=== PATIENT | female | born 1950 | race Caucasian/White ===

== ENCOUNTER 2019-05-01 10:41 | Outpatient (CLI) | payer MEDICARE, SELFPAY ==
--- NOTE | ~2019-05-01 | DEXA_ITS ---
Bone Density Report Name: Katherine Chapman Age: 68 Sex: Female Ethnicity: White Date of : 1950 Indication: postmenopausal; height loss; prior fracture; hysterectomy; Referring Provider: Trever, Sona Block Study: Bone densitometry was performed. Exam Date: May 01, 2019 Accession number: [id number] Bone Density: Region BMD T-score Z-score Classification AP Spine (L1, L2) 1.079 0.9 2.7 Normal Femoral Neck (Left) 0.739 -1.0 0.6 Normal Total Hip (Left) 0.949 0.1 1.4 Normal Total Hip Bilateral Avg 0.954 0.1 1.4 Normal Femoral Neck (Right) 0.787 -0.6 1.0 Normal Total Hip (Right) 0.958 0.1 1.4 Normal World Health Organization criteria for BMD impression classify patients as: Normal (T-score at or above -1.0), Osteopenia (T-score between -1.0 and -2.5), or Osteoporosis (T-score at or below -2.5). 10-year Fracture Risk: FRAX not reported because: All T-scores for Spine Total, Hip Total, Femoral Neck at or above -1.0 Clinical Information Provided by Patient: Has had a low trauma fracture Has used the following medications: Vitamin D Has the following medical conditions: Hysterectomy Patient maximum height was 68 Menopause Age: 47 No regular weight bearing exercise Onset of menses at age 14 Number of children 2 Impression: The patient has normal bone mass. The patient has risk factors, including: previous fracture. Discussion: BONE DENSITY IS ABOVE THE MINIMUM DESIRABLE LEVEL AT ALL SKELETAL SITES TESTED. This patient?s bone mineral density is above the minimum desirable level (T-score -1.0 or better) at all sites measured. The patient should follow a healthful lifestyle (good nutrition with adequate calcium and vitamin D, and appropriate weight-bearing exercise). Follow-Up: Consider repeating this study in 5 years or sooner if there is some new clinical indication. Reported by: SHASHANK on 05/01/2019 11:08:00 AM. Reviewed, dictated and finalized at location AGrady MENDOZA
== END 2019-05-01 10:42 | disposition home or self-care (01) ==
PROVIDERS: PCP Family Medicine; Visit Provider Nurse Practitioner Family
DX: Z78.0 Asymptomatic menopausal state (principal)
CPT/HCPCS: 77080

== ENCOUNTER 2020-03-18 13:51 | Outpatient (CLI) | payer MEDICARE, SELFPAY ==
--- NOTE | ~2020-03-18 | MM_ITS ---
EXAMINATION: MM screening [facility] BI w roderick HISTORY: Screening TECHNIQUE: Craniocaudal and mediolateral oblique 3-D tomosynthesis images were obtained and synthetic 2-D images were generated. CAD analysis was submitted and interpreted. COMPARISON: Comparison to multiple prior studies sequentially, with oldest reviewed study dated 12/04. BREAST PARENCHYMAL COMPOSITION: Breast composed of scattered areas of fibroglandular density. FINDINGS: There is no evidence of suspicious mass, calcification, or architectural distortion to sugg est malignancy in either breast. There has been no suspicious interval change. IMPRESSION: 1. No mammographic evidence of malignancy. 2. Recommend routine screening mammography in one year. BI-RADS Category 1: Negative Reviewed, dictated and finalized at location A. CAL GOODS DRILL OPERATOR
--- NOTE | ~2020-03-18 | US_ITS ---
EXAMINATION: US arterial ankle brachial ind EXAM DATE: 03/18/2020 15:10 INDICATION: Symptoms/Signs Involving Circlaory/Respiratory Systems Leg Pain. TECHNIQUE: Segmental pressures and plethysmographic and Doppler waveforms of the brachial and lower e xtremity arteries were obtained. There is no prior study for comparison. FINDINGS: Right and left brachial artery pressures of 137 mm Hg and 136 mm Hg, respectively, are concordant (no rmal difference <= 30 mmHg). RIGHT LEG: The ankle-brachial index (ANUSHA) is 1.15 (normal >= 0.9-1). The great toe-brachial index (TBI) is 0.62 (normal >= 0.65). The lower extremity ratios, segmental pressure gradients as follows; Dorsalis pedis: 0.96 (137 mmHg). Posterior tibial: 1.15 (157 mmHg). (Normal gradients <= 20-30 mmHg between adjacent levels on the same leg or the same levels on the two legs). Arterial waveforms are biphasic. LEFT LEG: The ankle-brachial index (ANUSHA) is 1.02 (normal >= 0.9-1). The great toe-brachial index (TBI) is 0.45 (normal >= 0.65). The lower extremity ratios, segmental pressure gradients as follows; Dorsalis pedis: 0.93 (127 mmHg). Posterior tibial: 1.02 (140 mmHg). (Normal gradients <= 20-30 mmHg between adjacent levels on the same leg or the same levels on the two legs). Arterial waveforms are biphasic. IMPRESSION: 1. Right ankle-brachial index 1.15, normal. 2. Left ankle-brachial index 1.02, normal. Reviewed, dictated and finalized at location B. OYEE RELATIONS REPRESENTATIVE
== END 2020-03-18 13:52 | disposition home or self-care (01) ==
PROVIDERS: PCP Family Medicine; Visit Provider Nurse Practitioner Family
DX: Z12.31 Encounter for screening mammogram for malignant neoplasm of breast (principal); R09.89 Other specified symptoms and signs involving the circulatory and respiratory systems
CPT/HCPCS: 77063; 77067; 93922

== ENCOUNTER 2021-10-05 08:47 | Outpatient (CLI) | payer MEDICARE, SELFPAY ==
--- NOTE | ~2021-10-05 | MM_ITS ---
EXAMINATION: MM screening [facility] BI w roderick HISTORY: Screening TECHNIQUE: Craniocaudal and mediolateral oblique 3-D tomosynthesis images were obtained and synthetic 2-D images were generated. CAD analysis was submitted and interpreted. COMPARISON: Comparison to multiple prior studies sequentially, with oldest reviewed study dated 12/04. BREAST PARENCHYMAL COMPOSITION: There are scattered areas of fibroglandular density. FINDINGS: There is no evidence of suspicious mass, calcification, or architectural distortion to sugg est malignancy in either breast. There has been no suspicious interval change. IMPRESSION: 1. No mammographic evidence of malignancy. 2. Recommend routine screening mammography in one year. BI-RADS Category 1: Negative Reviewed, dictated and finalized at location A.
--- NOTE | ~2021-10-05 | DEXA_ITS ---
Bone Density Report Name: GE EDWARDS Age: 70 Sex: Female Ethnicity: White Date of : 1950 Indication: postmenopausal; screening for osteoporosis; height loss; prior fracture; hysterectomy; Referring Provider: INGRID, PRITESH Kelly Study: Bone densitometry was performed. Exam Date: October 05, 2021 Accession number: [id number] Bone Density: Region BMD T-score Z-score Classification AP Spine(L1-L4) 1.282 2.1 4.2 Normal Femoral Neck (Left) 0.778 -0.6 1.1 Normal Total Hip (Left) 0.976 0.3 1.7 Normal Femoral Neck (Right) 0.807 -0.4 1.4 Normal Total Hip (Right) 0.972 0.2 1.7 Normal Total Hip Mean 0.974 0.3 1.7 Normal World Health Organization criteria for BMD impression classify patients as: Normal (T-score at or above -1.0), Osteopenia (T-score between -1.0 and -2.5), or Osteoporosis (T-score at or below -2.5). 10-year Fracture Risk: FRAX not reported because: All T-scores for Spine Total, Hip Total, Femoral Neck at or above -1.0 Previous Exams: Region Exam Age BMD T-score BMD Change BMD Change Date g/cm2 vs Baseline vs Previous Total Hip(Left) 10/05/2021 70 0.976 0.3 0.027 (2.8%) 0.027 (2.8%) 05/01/2019 68 0.949 0.1 Total Hip(Right) 10/05/2021 70 0.972 0.2 0.014 (1.5%) 0.014 (1.5%) 05/01/2019 68 0.958 0.1 *Denotes significance at 95% confidence level, LSC for Total Hip = 0.027 g/cm2 Clinical Information Provided by Patient: Has had a low trauma fracture Has the following medical conditions: Hysterectomy Patient maximum height was 66.5 Menopause Age: 47 No regular weight bearing exercise Onset of menses at age 14 Number of children 2 Impression: The patient has normal bone mass. The patient has risk factors, including: previous fracture. No significant bone loss was observed. Discussion: BONE DENSITY IS ABOVE THE MINIMUM DESIRABLE LEVEL AT ALL SKELETAL SITES TESTED. This patient?s bone mineral density is above the minimum desirable level (T-score -1.0 or better) at all sites measured. The patient should follow a healthful lifestyle (good nutrition with adequate calcium and vitamin D, and appropriate weight-bearing exercise). Follow-Up: Consider repeating this study in 5 years or sooner if there is some new clinical indication. Reported by: SHASHANK on 10/05/2021 9:27:00 AM. Reviewed, dictated and finalized at location AGrady MENDOZA
== END 2021-10-05 08:48 | disposition home or self-care (01) ==
PROVIDERS: PCP Family Medicine; Visit Provider Nurse Practitioner Family
DX: Z12.31 Encounter for screening mammogram for malignant neoplasm of breast (principal); Z78.0 Asymptomatic menopausal state
CPT/HCPCS: 77063; 77067; 77080

== ENCOUNTER 2023-04-18 08:54 | Outpatient (CLI) | payer MEDICARE, SELFPAY ==
--- NOTE | ~2023-04-18 | MM_ITS ---
EXAMINATION: MM screening [facility] BI w roderick HISTORY: Screening mammogram, family history of breast cancer in her mother and sister. TECHNIQUE: Craniocaudal and mediolateral oblique 3-D tomosynthesis images were obtained and synthetic 2-D images were generated. CAD analysis was submitted and interpreted. COMPARISON: 10/05/2021, 03/18/2020, 12/12/2018, 11/28/2018 BREAST PARENCHYMAL COMPOSITION: There are scattered areas of fibroglandular density. FINDINGS: No suspicious mass, calcification, or architectural distortion are identified in either dorene ast to suggest malignancy. There has been no suspicious interval change. IMPRESSION: 1. No mammographic evidence of malignancy. 2. Recommend routine screening mammography in one year. BI-RADS Category 1: Negative Reviewed, dictated and finalized at location A. MUTUEL CLERK
== END 2023-04-18 08:55 | disposition home or self-care (01) ==
PROVIDERS: PCP Family Medicine; Visit Provider Family Medicine
DX: Z12.31 Encounter for screening mammogram for malignant neoplasm of breast (principal)
CPT/HCPCS: 77063; 77067

== ENCOUNTER 2024-06-18 14:44 | Outpatient (CLI) | payer MEDICARE, SELFPAY ==
--- NOTE | ~2024-06-18 | MM_ITS ---
EXAMINATION: MM screening cheryl BI w roderick HISTORY: Screening TECHNIQUE: Craniocaudal and mediolateral oblique 3-D tomosynthesis images were obtained and synthetic 2-D images were generated. CAD analysis was submitted and interpreted. COMPARISON: Comparison to multiple prior studies sequentially, with oldest reviewed study dated 05/29. BREAST PARENCHYMAL COMPOSITION: Not dense: There are scattered areas of fibroglandular density. FINDINGS: Bilateral breast asymmetries are stable. There is no evidence of suspicious mass, calcifica tion, or architectural distortion to suggest malignancy in either breast. There has been no suspiciou s interval change. IMPRESSION: 1. No mammographic evidence of malignancy. 2. Recommend routine screening mammography in one year. BI-RADS Category 2: Benign finding(s). Reviewed, dictated and finalized at location B.
--- OUTSIDE RECORDS SUMMARY | 2024-06-18 14:49 | XMS_ITS | Referral Summary ---
Author Organization [facility] [place] [address] Address [address] [place] [address] Care Team Providers Care Retrieval Specialist Name Role Phone Anderson Lofton MD Primary Care Provider [phone] Encounters Date Type Department Care Team Description 06/11/2024 8:10 AM CDT - 06/11/2024 11:59 PM CDT Hospital Encounter [facility] [address] [place] [id number] Thyroid nodule Discharge Disposition: Discharge to home or self care 06/11/2024 8:10 AM CDT - 06/11/2024 11:59 PM CDT Hospital Encounter [address] [address] Asymptomatic menopausal state Discharge Disposition: Discharge to home or self care 05/26/2024 Orders Only [facility] Primary Care at [address] [id number] Anderson Lofton MD 05/08/2024 Orders Only [facility] [address] [place] [address] Anderson Lofton MD Thyroid nodule (Primary Dx) 05/08/2024 8:30 AM GROUND SUPPORT AGENT Lab [facility] [address] [place] [address] Mixed hyperlipidemia 05/08/2024 8:00 AM GROUND SUPPORT AGENT Office Visit [facility] [address] [place] [address] Anderson Lofton MD Mixed hyperlipidemia (Primary Dx); Asymptomatic menopausal state; Thyroid nodule; History of colonic polyps; Annual physical exam; Adverse reaction to statin medication from Last 3 Months Allergies Active Allergy Reactions Criticality Noted Date Comments Morphine Other (See comments) Low 03/06/2019 Adverse reaction Penicillins Rash Medium 04/20/2014 Sulfa (Sulfonamide Antibiotics) Rash Medium 04/20/2014 Medications docusate sodium (Colace) 100 mg capsuleIndicati ons:constipatio n Take 1 capsule (100 mg total) by mouth 2 (two) times a day for 14 days 28 capsule 04/12/2023 Active cholecalciferol 400 unit capsule Active ezetimibe (ZETIA) 10 mg tablet TAKE 1 TABLET BY MOUTH DAILY 100 tablet 2 12/06/2023 Active Active Problems Problem Noted Date Diagnosed Date Annual physical exam 05/08/2024 Assessment & Plan (05/08/2024 8:21 AM GROUND SUPPORT AGENT): Focus of exam is preventative in nature. Reviewed immunizations, reivweed sun/skin cancer screening. Reivewed colon/breast cancer screening. Remains active and congratulate on active lifestyle. Asymptomatic menopausal state 05/08/2024 Assessment & Plan (05/08/2024 8:21 AM GROUND SUPPORT AGENT): Bone density screenign and will follow response. Adverse reaction to statin medication 05/08/2024 Assessment & Plan (05/08/2024 8:22 AM GROUND SUPPORT AGENT): TOlerating zetia and will montior rseponse. Epigastric hernia 03/12/2023 Assessment & Plan (04/18/2023 11:13 AM GROUND SUPPORT AGENT): Continue to avoid heavy lifting for 4 weeks. No submerging incisions for another week. Continue abdominal binder for comfort. Continue bowel regimen to avoid straining. Patient will call us back with any further questions or concerns. Vitamin D deficiency 03/06/2023 Assessment & Plan (03/06/2023 1:29 PM GROUND SUPPORT AGENT): Stable. Continue vitamin-D supplement. Will continue to monitor. Periumbilical hernia 03/06/2023 Assessment & Plan (03/12/2023 2:10 PM GROUND SUPPORT AGENT): Given the symptomatic nature of th presentation to the ED, we will set her up for repair. We have discussed the need for mesh implantation. We have corrections. All questions answered. Pre-admission testing will be sent in. Consent to be obtained Assessment & Plan (03/06/2023 1:29 PM GROUND SUPPORT AGENT): Currently asymptomatic. Keep appointment with general surgeon tomorrow. Red flags reviewed. Hospital discharge follow-up 03/06/2023 Assessment & Plan (03/06/2023 1:29 PM GROUND SUPPORT AGENT): I, Nae Hanson NP have personally reviewed pertinent inpatient and/or ED records, including discharge medications and Clindesk if applicable. This patient's discharge medication list has been reviewed and reconciled with her outpatient medication list and has also been reviewed with patient and/or caregiver. I have noted any changes. Class 1 obesity due to exces s calories without serious comorbidity with body mass index (BMI) of 30.0 to 30.9 in adult 03/06/2023 Thyroid nodule 02/04/2023 Assessment & Plan (05/08/2024 8:20 AM GROUND SUPPORT AGENT): Continue f/u with Dr. Patel and will follow response. DUe for repeat imaging. Assessment & Plan (02/04/2023 2:23 PM GROUND SUPPORT AGENT): Doxycycline twice daily for [address] Neck in 4 weeks Continue to monitor Thyroid nodule with yearly Ultrasounds, if growth over 4 cm will recommend Left completion thyroidectomy Continue good hydration and good oral hygiene Dental infection 02/04/2023 Assessment & Plan (02/04/2023 2:23 PM GROUND SUPPORT AGENT): Doxycycline twice daily for [address] Neck in 4 weeks Continue to monitor Thyroid nodule with yearly Ultrasounds, if growth over 4 cm will recommend Left completion thyroidectomy Continue good hydration and good oral hygiene History of colonic polyps 05/17/2022 Overview (05/17/2022): Added automatically from request for surgery [id number] Assessment & Plan (05/08/2024 8:20 AM GROUND SUPPORT AGENT): C-scope UTD. Assessment & Plan (03/06/2023 1:30 PM GROUND SUPPORT AGENT): Colonoscopy up-to-date. Consider MiraLax for constipation but await follow-up with surgeon tomorrow. Encounter for screening colonoscopy 05/17/2022 Overview (05/17/2022): Added automatically from request for surgery [id number] Herpes zoster without complication 02/15/2022 Assessment & Plan (02/15/2022 8:10 AM GROUND SUPPORT AGENT): Take antiviral three times daily for 7 days, started yesterday. Avoid high risk populations--elderly, very young, immunocompromised and . Discussed contagious nature of shingles until rash is scabbed over and dry. Take ibuprofen 800 mg 3x daily with food as needed for pain. Follow up if no improvement in 2 weeks or sooner if needed. Mixed hyperlipidemia 02/15/2022 Assessment & Plan (05/08/2024 8:20 AM GROUND SUPPORT AGENT): Contniues on zetia. Due for repeat labwork and will follow response. Assessment & Plan (02/15/2022 8:08 AM GROUND SUPPORT AGENT): Patient taking ezetimibe as prescribed. Will repeat labs prior to next office visit in 2 months. Reviewed diet and exercise recommendations. Class 1 obesity due to exces s calories with serious comorbidity and body mass index (BMI) of 31.0 to 31.9 in adult 02/15/2022 Assessment & Plan (02/15/2022 8:10 AM GROUND SUPPORT AGENT): Discussed healthy diet and importance of regular physical activity. Acute non-recurrent frontal sinusitis 07/22/2021 Assessment & Plan (07/22/2021 2:58 PM CDT): Complete zpack & medrol dose pack sent. Reviewed abx & medrol Ses & scheduling. Aware to complete full course. To continue mucinex/sinus otc medications. Discussed nasal saline rinses/neti pots. Push fluids. Reviewed red flags; what would warrant rtc. Cough 07/22/2021 Assessment & Plan (07/22/2021 2:59 PM CDT): Zashwini, shon perles & medrol dose pack sent. Will continue otc. To start saline nasal rinses again. Will switch to plain mucinex. Resolved Problems Problem Noted Date Diagnosed Date Resolved Date Pain in wrist 04/20/2014 02/22/2023 Immunizations Immunization Administration Dates Next Due Influenza, Quad, Adjuvantate d, Intramuscular 01/20/2021 Influenza, Quadrivalent, Maty l Culture-based MDCK, Antibiotic Free, Intramuscular 12/15/2018,12/15/2018 Influenza, Quadrivalent, Hig h Dose, Preservative Free, Intrr 12/19/2022,12/14/2019,12/14/2019 Influenza, Trivalent, Preser vative Free, Intramuscular 02/08/2017,02/08/2017 Influenza, Unspecified 01/01/2024,2021,12/02/2017,12/02 Pneumococcal Conjugate PCV 13 03/06/2019 Pneumococcal Polysaccharide PPV23 04/28/2021 Tdap 02/08/2017,02/08/2017 Social History Tobacco Use Types Packs/Day Years Used Date Smoking Tobacco: Former Cigarettes 0.3 11 0 03/04/1983 - 03/04/1994 Smokeless Tobacco: Never Alcohol Use Standard Drinks/Week Comments Never 0 (1 standard drink = 0.6 oz pur e alcohol) AUDIT-C Answer Date Recorded Frequency of Alcohol Consumption Not on file 04/04/2023 Q2: How many drinks containi ng alcohol do you have on a typical day when you are drinking? Patient does not drink Frequency of Binge Drinking Not on file 03/2023 PHQ-2 Answer Date Recorded PHQ-2 Total Score (If total score is 3 or more points, staff should administer the PHQ-9) 0 05/08/2024 Personal Safety Answer Date Recorded Have you ever been in or are you currently in a harmful physical or emotional relationship or is someone making you feel afraid or unsafe? Denies 04/12/2023 Comments No Sex and Gender Information Value Date Recorded Sex Assigned at Not on file Legal Sex Female 11:19 AM GROUND SUPPORT AGENT Gender Identity Not on file Sexual Orientation Not on file Last Filed Vital Signs Vital Sign Reading Time Taken Comments Blood Pressure 124/78 05/08/2024 7:55 AM GROUND SUPPORT AGENT Pulse 76 05/08/2024 7:55 AM GROUND SUPPORT AGENT Temperature 36.8 C (98.3 F) 05/08/2024 7:55 AM GROUND SUPPORT AGENT Respiratory Rate 18 05/08/2024 7:55 AM GROUND SUPPORT AGENT Oxygen Saturation 99% 05/08/2024 7:55 AM GROUND SUPPORT AGENT room air Inhaled Oxygen Concentration - - Weight 84.4 kg (186 lb) 05/08/2024 7:55 AM GROUND SUPPORT AGENT Height 167.6 cm (5' 6 ) 05/08/2024 7:55 AM GROUND SUPPORT AGENT Body Mass Index 30.02 05/08/2024 7:55 AM GROUND SUPPORT AGENT Plan of Treatment Not on file Medical Devices Implanted Type Area Drying Supervisor Device Identifier Shelf Expiration Date Model / Serial / Lot [employer]/C R Bard Ventralight St Sepra 4.5in Uncoated Monofilament Lightweight [id number] - [id number] Implanted:Qty: 1 on 04/12/2023 by Ward Burnham MD at [facility] N/A: Abdomen [employer] 09/28/2024 [id number] / / [id number] Procedures Procedure Name Priority Date/Time Associated Diagnosis Comments DEXA AXIAL SKELETON BONE DENSITY 1 OR MORE SITES Schedule Routine, Read Routine (OP Routine) 06/11/2024 8:24 AM CDT Asymptomatic menopausal state EGFR Routine 05/08/2024 8:24 AM GROUND SUPPORT AGENT Mixed hyperlipidemia DIFFERENTIAL AUTO Routine 05/08/2024 8:2 4 AM GROUND SUPPORT AGENT Mixed hyperlipidemia CBC WITH AUTO DIFFERENTIAL Routine 05/08/2024 8:24 AM GROUND SUPPORT AGENT Mixed hyperlipidemia COMPREHENSIVE METABOLIC PANEL Routine 05/08/2024 8:24 AM GROUND SUPPORT AGENT Mixed hyperlipidemia LIPID PANEL Routine 05/08/2024 8:24 AM GROUND SUPPORT AGENT Mixed hyperlipidemia SCREENING MAMMOGRAM BILATERAL W DELIA Schedule Routine, Read Routine (OP Routine) 04/18/2023 11:54 AM GROUND SUPPORT AGENT Encounter for screening mammogram for malignant neoplasm of breast COLONOSCOPY 06/15/2022 9:26 AM CDT HEPATITIS C ANTIBODY Routine 07/10/2021 7:15 AM CDT Encounter for hepatitis C screening test for low risk patient from Last 3 Months or Most Recently Relevant to Health Maintenance Results * Dexa Axial Skeleton Bone Density 1 or 2 Site (06/11/2024 8:24 AM CDT) Anatomical Region Laterality Modality Body N/A Other 06/11/2024 4:37 PM CDT Narrative 06/11/2024 4:38 PM CDT EXAM DESCRIPTION: DEXA AXIAL SKELETON BONE DENSITY 1 OR MORE SITES REASON FOR STUDY: 73 y/o year old F with given history of: Postmenopausal status. Patient takes vitamin-D. Drying Supervisor/Model: [employer] Discovery SL (S/N [id number]) Facility LSC value of 0.022 for the AP spine, 0.027 for the femur, and 0.023 for the forearm. CLINICAL INFORMATION: Current height: 65 inches Maximum height: 66 inches Weight: 186 pounds Risk factors: None COMPARISON: None available FINDINGS: AP LUMBAR SPINE L1-L4: Total BMD is 1.203 g/cm2 T-score is 1.4 LEFT HIP: Total BMD is 0.904 g/cm2 T-score is -0.3 Femoral neck BMD is 0.723 g/cm2 T-score is -1.1 FRAX: 10 year risk for a major osteoporotic fracture is 9 %, 10 year risk for a hip fracture is 1.1 % Per National Osteoporosis Foundation guidelines, this patient does not meet the criteria for pharmacological treatment of patients with FRAX 10 year major osteoporotic fracture risk scores of = or greater than 20% or a 10 year probability of a hip fracture = or greater than 3%, to reduce fracture risk. Additional factors such as frequent falls are not represented in FRAX and warrant individual clinical judgment. IMPRESSION: Low bone mass REFERENCE: Bone mineral density: T-Score: Normal (T-score above or = -1.0) Low bone mass (T-score between -1.0 and -2.5) replaces the previously used term osteopenia Osteoporosis (T-score = or below -2.5) Z-Score: Within the expected range for age (Z-score above -2.0) Below the expected range for age (Z-score is -2.0 or below) Please see below follow up recommendations. Medical evaluation for secondary causes of low bone mineral density may be appropriate. FRAX is a World Health Organization validated fracture risk assessment tool that calculates a person's 10 year probability of a major osteoporosis related fracture and hip fracture. According to the National Osteoporosis Foundation guidelines, postmenopausal women and men age 50 or older with low bone mass and a 10 year probability of a major osteoporosis related fracture = or greater than 20% or a 10 year probability of a hip fracture = or greater than 3% should be considered for pharmacological treatment for the prevention of osteoporosis. For further information, including treatment recommendations, please refer to the 2019 ISCD Official Positions (http://www.iscd.org) and the NOF's Clinician's Guide to Prevention and Treatment of Osteoporosis (http://www.nof.org/professionals/clinical-guidelines) THIS IS AN ELECTRONICALLY VERIFIED FINAL REPORT 06/11/2024 4:38 PM - Electronically signed by Betina Quiñonez M.D. TW: TW Report ID: [id number] Reading Location: [place] [address] Procedure Note Betina Quiñonez MD - 06/11/2024 EXAM DESCRIPTION: DEXA AXIAL SKELETON BONE DENSITY 1 OR MORE SITES REASON FOR STUDY: 73 y/o year old F with given history of:Postmenopausal status. Patient takes vitamin-D. Drying Supervisor/Model: [employer] Discovery SL (S/N [id number]) Facility LSC value of 0.022 for the AP spine, 0.027 for the femur, and0.023 for the forearm. CLINICAL INFORMATION: Current height: 65 inches Maximum height: 66 inches Weight: 186 pounds Risk factors: None COMPARISON: None available FINDINGS: AP LUMBAR SPINE L1-L4: Total BMD is 1.203 g/cm2 T-score is 1.4 LEFT HIP: Total BMD is 0.904 g/cm2 T-score is -0.3 Femoral neck BMD is 0.723 g/cm2 T-score is -1.1 FRAX: 10 year risk for a major osteoporotic fracture is 9 %, 10 year risk for ahip fracture is 1.1 % Per National Osteoporosis Foundation guidelines, this patient does notmeet the criteria for pharmacological treatment of patients with FRAX 10 yearmajor osteoporotic fracture risk scores of = or greater than 20% or a 10 year probability of a hip fracture = or greater than 3%, to reduce fracturerisk. Additional factors such as frequent falls are not represented in FRAX and warrant individual clinical judgment. IMPRESSION: Low bone mass REFERENCE: Bone mineral density: T-Score: Normal (T-score above or = -1.0) Low bone mass (T-score between -1.0 and -2.5) replaces thepreviously used term osteopenia Osteoporosis (T-score = or below -2.5) Z-Score: Within the expected range for age (Z-score above -2.0) Below the expected range for age (Z-score is -2.0 or below) Please see below follow up recommendations. Medical evaluation forsecondary causes of low bone mineral density may be appropriate. FRAX is a World Health Organization validated fracture risk assessmenttool that calculates a person's 10 year probability of a major osteoporosisrelated fracture and hip fracture. According to the National OsteoporosisFoundation guidelines, postmenopausal women and men age 50 or older with low bonemass and a 10 year probability of a major osteoporosis related fracture = or greater than 20% or a 10 year probability of a hip fracture = or greaterthan 3% should be considered for pharmacological treatment for the preventionof osteoporosis. For further information, including treatment recommendations, please referto the 2019 ISCD Official Positions (http://www.iscd.org) and the NOF's Clinician's Guide to Prevention and Treatment of Osteoporosis (http://www.nof.org/professionals/clinical-guidelines) THIS IS AN ELECTRONICALLY VERIFIED FINAL REPORT 06/11/2024 4:38 PM - Electronically signed by Betina Quiñonez M.D. TW: BIBI Report ID: [id number] Reading Location: [id number] Anderson Lofton MD IMG DXA PROCEDURES Final Result * eGFR (05/08/2024 8:24 AM GROUND SUPPORT AGENT) eGFR 72 >=60 mL/min/1. 73 m2 Comment: Interpretive Data Reference Interval Normal >/= 90 mL/min/1.73m2 Mildly decreased* 60 - 89 mL/min/1.73m2 Mildly to moderately decreased 45 - 59 mL/min/1.73m2 Moderately to severely decreased 30 - 44 mL/min/1.73m2 Severely decreased 15 - 29 mL/min/1.73m2 Kidney Failure < 15 mL/min/1.73m2 *Relative to young adult level Estimated glomerular filtration rate is determined by the 2020 CKD-EPI equation recommended by the National Kidney Foundation (A Unifying Approach to GFR Estimation: Recommendations of the NKF-ASK Task Force on Reassessing the Inclusion of Race in Diagnosing Kidney Disease, JASN 2020). The CKD-EPI equation should not be used for patients with unstable renal function and has not been validated in children and those over 70. Current interpretive data was last reviewed 2021. Testing performed by: [address] [address] Blood 05/08/2024 8:24 AM GROUND SUPPORT AGENT 05/08/2024 1:17 PM GROUND SUPPORT AGENT Anderson Lofton MD LAB BLOOD ORDERABLES Raquel l Result ANNEL SANTOS (SPENCER) 1 [facility] Department [place] [address] * Differential, auto (05/08/2024 8:24 AM GROUND SUPPORT AGENT) Neutrophil abs 3.2 1.5 - 6.5 K/cumm Comment:Testing performed by : [facility], [address] [place] [address]., [address] Imm gran abs 0.0 0.0 - 0.1 K/cumm [facility] ([facility]) Comment:Testing performed by : [facility], [address] [place] [address]., [address] Lymphocyte abs 1.8 0.8 - 3.3 K/cumm [facility] ([place]) Comment:Testing performed by : [facility], [address] [place] [address]., [address] Monocyte abs 0.4 0.2 - 0.8 K/cumm [facility] ([place]) Comment:Testing performed by : [facility], [address] [place] [address]., [address] Eosinophil abs 0.1 0.0 - 0.5 K/cumm [facility] ([place]) Comment:Testing performed by : [facility], [address] [place] [address]., [address] Basophil abs 0.1 0.0 - 0.1 K/cumm [facility] ([place]) Comment:Testing performed by : [facility], [address] [place] [address]., [address] Neutrophil pct 56.7 % [facility] ([place]) Comment: Interpretive Data Percent cell count reference ranges are not reported, since discordance with absolute values may lead to misinterpretation of CBC data. Current Interpretive Data was last revised on 2017. Testing performed by: [address] [address] Imm gran pct 0.4 % [facility] ([place]) Comment: Interpretive Data Percent cell count reference ranges are not reported, since discordance with absolute values may lead to misinterpretation of CBC data. Current Interpretive Data was last revised on 2017. Testing performed by: [address] [address] Lymphocyte pct 32.9 % [facility] ([place]) Comment: Interpretive Data Percent cell count reference ranges are not reported, since discordance with absolute values may lead to misinterpretation of CBC data. Current Interpretive Data was last revised on 2017. Testing performed by: [facility], [address] [place] [address]., [address] Monocyte pct 7.7 % [facility] ([place]) Comment: Interpretive Data Percent cell count reference ranges are not reported, since discordance with absolute values may lead to misinterpretation of CBC data. Current Interpretive Data was last revised on 2017. Testing performed by: [facility], [address] [place] [address]., [address] Eosinophil pct 1.4 % [facility] ([facility]) Comment: Interpretive Data Percent cell count reference ranges are not reported, since discordance with absolute values may lead to misinterpretation of CBC data. Current Interpretive Data was last revised on 2017. Testing performed by: [facility], [address] [place] [address]., [address] Basophil pct 0.9 % [facility] ([place]) Comment: Interpretive Data Percent cell count reference ranges are not reported, since discordance with absolute values may lead to misinterpretation of CBC data. Current Interpretive Data was last revised on 2017. Testing performed by: [address] [address] Blood 05/08/2024 8:24 AM GROUND SUPPORT AGENT 05/08/2024 1:05 PM GROUND SUPPORT AGENT Anderson Lofton MD LAB BLOOD ORDERABLES Raquel l Result ANNEL SANTOS (SPENCER) 1 [facility] Department [place] [address] * (ABNORMAL) CBC with auto differential (05/08/2024 8:24 AM GROUND SUPPORT AGENT) WBC 5.6 3.8 - 9.9 K/cumm Comment:Testing performed by : [facility], [address] [place] [address]., [address] Hgb 13.3 11.9 - 15.5 g/dL [facility] ([place]) Comment:Testing performed by : [address] [address] Hct 43.3 35.6 - 45.5 % [facility] ([place]) Comment:Testing performed by : [facility], [address] [place] [address]., [address] Plt 385 150 - 400 K/cumm [facility] ([place]) Comment:Testing performed by : [address], [address] MPV 10.2 9.1 - 12.3 fL [facility] ([place]) Comment:Testing performed by : [facility], [address] [place] [address], [address] RBC 4.59 3.90 - 5.20 M/cumm [facility] ([place]) Comment:Testing performed by : [facility], [address] [place] [address], [address] MCV 94.3 81.3 - 96.4 fL [facility] ([place]) Comment:Testing performed by : [facility], [address] [place] [address], [address] MCH 29.0 27.1 - 33.3 pg [facility] ([place]) Comment:Testing performed by : [address], [address] MCHC 30.7(L) 32.3 - 35.7 g/dL [facility] ([place]) Comment:Testing performed by : [address], [address] RDW CV 14.1 11.1 - 14.9 % [facility] ([place]) Comment:Testing performed by : [address], [address] RDW SD 49.5(H) 35.7 - 48.1 fL [facility] ([place]) Comment:Testing performed by : [address], [address] NRBC abs 0.00 0.00 - 0.01 K/cumm [facility] ([place]) Comment:Testing performed by : [address], [address] Blood 05/08/2024 8:24 AM GROUND SUPPORT AGENT 05/08/2024 1:05 PM GROUND SUPPORT AGENT us Anderson Lofton MD LAB BLOOD ORDERABLES Raquel woodruff Result ANNEL SANTOS (RANDY) 1 [facility] Department [place] [address] * (ABNORMAL) Lipid panel (05/08/2024 8:24 AM GROUND SUPPORT AGENT) Cholesterol 227(H) 30 - 199 mg/dL Comment: Interpretive Data Ages < or = 19 years Acceptable: <170 mg/dL Borderline high: 170-199 mg/dL High: >or= 200 mg/dL Ages > or = 20 years Desirable: <200 mg/dL Borderline high: 200-239 mg/dL High: >or= 240 mg/dL Literature References: 1. Expert Panel on Integrated Guidelines for Cardiovascular Health and Risk Reduction in Children and Adolescents. Pediatrics 2011;128:S213 2. NCEP Expert Panel. Circulation 2004;110:227 Current Interpretive Data was last revised on 2017. Testing performed by: [facility], [address] [place] [address]., [address] Triglycerides 103 <=149 mg/dL ANNEL SANTOS (RANDY) Comment: Interpretive Data Ages < or = 9 years Acceptable: <75 mg/dL Borderline high: 75-99 mg/dL High: >or= 100 mg/dL Ages 10 to 20 years Acceptable: <90 mg/dL Borderline high: 90-129 mg/dL High: >or= 130 mg/dL Ages > or = 20 years Desirable: <150 mg/dL Borderline high: 150-199 mg/dL High: 200-499 mg/dL Very high: >or= 499 mg/dL Literature References: 1. Expert Panel on Integrated Guidelines for Cardiovascular Health and Risk Reduction in Children and Adolescents. Pediatrics 2011;128:S213 2. NCEP Expert Panel. Circulation 2004;110:227 Current Interpretive Data was last revised on 2017. Testing performed by: [facility], [address] [place] [address]., [address] HDL 62 >=40 mg/dL ANNEL SANTOS ([place]) Comment: Interpretive Data Ages < or = 19 years Acceptable: >45 mg/dL Borderline low: 40-45 mg/dL Low: <40 mg/dL Ages > or = 20 years Desirable: >or= 60 mg/dL Low: <40 mg/dL Literature References: 1. Expert Panel on Integrated Guidelines for Cardiovascular Health and Risk Reduction in Children and Adolescents. Pediatrics 2011;128:S213 2. NCEP Expert Panel. Circulation 2004;110:227 Current Interpretive Data was last revised on 2017. Testing performed by: [facility], [address] [place] [address]., [id number] LDL, calculated 147(H) <=129 mg/dL ANNEL SANTOS ([place]) Comment: Interpretive Data Ages < or = 19 years Acceptable: <110 mg/dL Borderline high: 110-129 mg/dL High: >or= 130 mg/dL Ages > or = 20 years Optimal: <100 mg/dL Near optimal: 100-129 mg/dL Borderline high: 130-159 mg/dL High: >160 mg/dL Calculated using the Raffi LDL-C estimating equation. This equation was implemented on 2023. Prior to this date LDL-C was estimated using the Friedewald equation. Literature References: 1. Expert Panel on Integrated Guidelines for Cardiovascular Health and Risk Reduction in Children and Adolescents. Pediatrics 2011;128:S213 2. NCEP Expert Panel. Circulation 2004;110:227 3. Raffi Pike et al. BARBARA Cardiol. 2019July 02;5(5):540-548. doi: [email or web address] Current Interpretive Data was last revised on 2023. Testing performed by: [address] [address] Non-HDL Cholesterol 165 mg/dL ANNEL SANTOS ([place]) Comment: Interpretive Data Ages < or = 19 years Acceptable: <120 mg/dL Borderline high: 120-144 mg/dL High: >145 mg/dL Ages > or = 20 years When triglycerides are >200 mg/dL, Non-HDL cholesterol is a secondary target of therapy with treatment goals that are 30 mg/dL greater than the LDL cholesterol target. Literature References: 1. Expert Panel on Integrated Guidelines for Cardiovascular Health and Risk Reduction in Children and Adolescents. Pediatrics 2011;128:S213 2. NCEP Expert Panel. Circulation 2004;110:227 Current Interpretive Data was last revised on 2017. Testing performed by: [facility], [address] [place] [address]., [id number] Chol/HDL ratio 4 KEEGAN SANTOS ([place]) Comment:Testing performed by : [facility], [address] [place] [address]., [id number] Blood 05/08/2024 8:24 AM GROUND SUPPORT AGENT 05/08/2024 1:05 PM GROUND SUPPORT AGENT us Anderson Lofton MD LAB BLOOD ORDERABLES Raquel woodruff Result ANNEL [facility] 1 [facility] Department [place] [address] * Comprehensive metabolic panel (05/08/2024 8:24 AM GROUND SUPPORT AGENT) Sodium 141 135 - 145 mmol/L Comment:Testing performed by : [facility], [address] [place] [address]., [address] Potassium, pl 4.2 3.3 - 4.9 mmol/L [facility] ([place]) Comment:Testing performed by : [facility], [address] [place] [address]., [address] Chloride 103 97 - 110 mmol/L [facility] ([place]) Comment:Testing performed by : [facility], [address] [place] [address]., [address] CO2 26 22 - 32 mmol/L [facility] ([place]) Comment:Testing performed by : [facility], [address] [place] [address]., [address] Anion gap 12 2 - 15 mmol/L [facility] ([place]) Comment:Testing performed by : [facility], [address] [place] [address]., [address] BUN 17 6 - 25 mg/dL [facility] ([place]) Comment:Testing performed by : [facility], [address] [place] [address]., [address] Creatinine 0.86 0.60 - 1.10 mg/dL [facility] ([place]) Comment:Testing performed by : [address] [address] Glucose 104 70 - 199 mg/dL [facility] ([place] Comment: Interpretive Data Fasting glucose >/= 126 mg/dl is diagnostic for diabetes. Fasting is defined as no caloric intake for at least 8 hours. Fasting glucose between 100 mg/dl to 125 mg/dl is diagnostic of prediabetes. In a patient with classic symptoms of hyperglycemia or hyperglycemic crisis, a random glucose >/= 200 mg/dl is diagnostic for diabetes. In the absence of unequivocal hyperglycemia, results should be confirmed by repeat testing. The classification and Diagnosis of Diabetes Diabetes Care 202; 46: S19-S40. Current interpretive data was last revised 2022. Testing performed by: [facility], [address] [place] [address], [id number] Calcium 9.3 8.5 - 10.3 mg/dL [facility] ([place]) Comment:Testing performed by : [facility], [address] [place] [address], [address] Bilirubin, total 0.3 0.1 - 1.2 mg/dL [facility] ([place]) Comment:Testing performed by : [facility], [address] [place] [address], [address] Protein, pl 7.3 6.5 - 8.5 g/dL [facility] ([place]) Comment:Testing performed by : [facility], [address] [place] [address], [address] Albumin 4.4 3.5 - 5.0 g/dL [facility] ([place]) Comment:Testing performed by : [address], [address] Alk phos 90 40 - 130 Units/L [facility] ([place]) Comment:Testing performed by : [facility], [address] [place] [address], [address] ALT 32 7 - 45 Units/L [facility] ([place]) Comment:Testing performed by : [facility], [address] [place] [address], [id number] AST 33 10 - 45 Units/L [facility] ([place]) Comment:Testing performed by : [address], [id number] Blood 05/08/2024 8:24 AM GROUND SUPPORT AGENT 05/08/2024 1:05 PM GROUND SUPPORT AGENT Anderson Lofton MD LAB BLOOD ORDERABLES Raquel l Result [facility] ([place]) 1 [facility] Department [place] [address] * SCREENING MAMMOGRAM BILATERAL W DELIA (04/18/2023 11:54 AM GROUND SUPPORT AGENT) Anatomical Region Laterality Modality Breast Bilateral Mammography 04/18/2023 11:5 4 AM GROUND SUPPORT AGENT Anderson Lofton MD G MAMMO PROCEDURES Raquel l Result * COLONOSCOPY (06/15/2022 9:26 AM CDT) Anatomical Region Laterality Modality Other Narrative Procedure Note Devyn Barrios MD - 06/15/2022 9:26 AM CDT [facility] Patient Name: Katherine Chapman Procedure Date: 06/15/2022 9:26 AM Date of : 1950 Admit Type: Outpatient Age: 71 Gender: Female Attending MD: Devyn Barrios M.D. Room: [facility] ENDOSCOPY ROOM 2 Note Status: Finalized Patient Profile: Refer to note in patient chart for documentation of history and physical. Procedure: Colonoscopy Indications: Last colonoscopy: July 2010, Change in stoolcaliber Referring MD: Anderson Lofton M.D. Providers: Devyn Barrios M.D. Impression: - Hemorrhoids found on perianal exam. - Diverticulosis in the sigmoid colon, in the descending colon and in the transverse colon. - The examination was otherwise normal. - No specimens collected. Recommendation: - Discharge patient to home. - Resume previous diet. - Continue present medications. - Repeat colonoscopy in 10 years for screening purposes. - Return to primary care physician as previously scheduled. Medicines: Propofol per Anesthesia Complications: No immediate complications. Estimated Blood Loss: Estimated blood loss: none. Procedure: Pre-Anesthesia Assessment: - This assessment was completed [Time ofAssessment] prior to the administration of sedation. The benefits, risks and alternatives of theprocedure and sedation were discussed and informed consentwas obtained. All questions were answered. Please referto the signed informed consent document in the medical record. The bowel preparation used was Miralax via split dose instruction. The bowel preparation usedwas bisacodyl tablets via split dose instruction. The scope was passed under direct vision. TheColonoscope [id number] was introduced through the anus and advanced to the the cecum, identified by appendiceal orifice and ileocecal valve. The colonoscopy was performed without difficulty. The patient tolerated the procedure well. The qualityof the bowel preparation was excellent. The ileocecal valve, appendiceal orifice, and rectum were photographed. Findings: Hemorrhoids were found on perianal exam. Multiple small and large-mouthed diverticula were found in thesigmoid colon, descending colon and transverse colon. The exam was otherwise without abnormality. Electronically signed by Devyn Barrios M.D. Devyn Barrios M.D. 06/15/2022 10:30:20 AM Number of Addenda: 0 Note Initiated On: 06/15/2022 9:26 AM Procedure Code(s): --- Professional --- 24002, Colonoscopy, flexible; diagnostic, including collection of specimen(s) by brushing or washing, when performed (separateprocedure) --- Technical --- 68992, Colonoscopy, flexible; diagnostic, including collection of specimen(s) by brushing or washing, when performed (separateprocedure) Diagnosis Code(s): --- Professional --- K57.30, Diverticulosis of large intestine without perforation orabscess without bleeding R19.5, Other fecal abnormalities K64.9, Unspecified hemorrhoids --- Technical --- K57.30, Diverticulosis of large intestine without perforation orabscess without bleeding R19.5, Other fecal abnormalities K64.9, Unspecified hemorrhoids CPT copyright 2020 [employer]. All rights reserved. The codes documented in this report are preliminary and upon manager of enterprise reviewmay be revised to meet current compliance requirements. Recognized by the [employer] for promoting quality in endoscopy Devyn Barrios MD ENDOSCOPY PROCEDURES Final Re sult * Hepatitis C antibody (07/10/2021 7:15 AM CDT) Hep C Ab NON-REACTI VE NON-REACT DASHAWN [facility] SIGNAL TO CUT-OFF 0.01 <1.00 [facility] Comment: HCV antibody was non-reactive. There is no laboratory evidence of HCV infection. In most cases, no further action is required. However, if recent HCV exposure is suspected, a test for HCV RNA (test code 59893) is suggested. For additional information please refer to http://education.[employer]/faq/EWO63q0 (This link is being provided for informational/ educational purposes only.) Blood specimen (specimen) 07/10/2021 7:15 AM CDT 07/10/2021 7:16 AM CDT Narrative [facility] - 07/11/2021 10:28 AM CDT FASTING:YES FASTING: YES Nae Hanson NP LAB MICROBIOLOGY - GENERAL ORDERABLES Final Result [facility] [id number] [address] [facility] [place] [phone] from Last 3 Months or Most Recently Relevant to Health Maintenance Insurance [facility] MEDICARE ADVANTAGE [place] [id number] Advance Directives For more information, please contact: [phone] * Full Code (Latest Code Status on File) Date Activated Date Inactivated Comments 06/15/2022 9:21 AM 06/15/2022 3:22 PM * Full Code Date Activated Date Inactivated Comments 06/15/2022 9:21 AM 06/15/2022 9:21 AM Care Teams Retrieval Specialist Relationship Specialty Start Date End Date Anderson Lofton MD [address] [place] [address] PCP - General Family Medicine 03/06/19
--- OUTSIDE RECORDS SUMMARY | 2024-06-18 14:50 | XMS_ITS | Clinical Summary ---
Author Organization [facility] [address] Address [address] [place] [address] Care Team Providers Care Feed Management Advisor Name Role Phone Anderson Lofton MD Primary Care Provider [phone] Allergies Active Allergy Reactions Criticality Noted Date [...] 05/08/2024 Assessment & Plan (05/08/2024 8:21 AM NURSE PRACTITIONER PHYSICIAN ASSISTANT): Focus of exam is preventative in nature. Reviewed immunizations, reivweed sun/skin cancer screening. Reivewed colon/breast cancer screening. Remains active and congratulate on active lifestyle. Asymptomatic menopausal state 05/08/2024 Assessment & Plan (05/08/2024 8:21 AM NURSE PRACTITIONER PHYSICIAN ASSISTANT): Bone density screenign and will follow response. Adverse reaction to statin medication 05/08/2024 Assessment & Plan (05/08/2024 8:22 AM NURSE PRACTITIONER PHYSICIAN ASSISTANT): TOlerating zetia and will montior rseponse. Epigastric hernia 03/12/2023 Assessment & Plan (04/18/2023 11:13 AM NURSE PRACTITIONER PHYSICIAN ASSISTANT): Continue to avoid heavy lifting for 4 weeks. No submerging incisions for another week. Continue abdominal binder for comfort. Continue bowel regimen to avoid straining. Patient will call us back with any further questions or concerns. Vitamin D deficiency 03/06/2023 Assessment & Plan (03/06/2023 1:29 PM NURSE PRACTITIONER PHYSICIAN ASSISTANT): Stable. Continue vitamin-D supplement. Will continue to monitor. Periumbilical hernia 03/06/2023 Assessment & Plan (03/12/2023 2:10 PM NURSE PRACTITIONER PHYSICIAN ASSISTANT): Given the symptomatic nature of th presentation to the ED, we will set her up for repair. We have discussed the need for mesh implantation. We have corrections. All questions answered. Pre-admission testing will be sent in. Consent to be obtained Assessment & Plan (03/06/2023 1:29 PM NURSE PRACTITIONER PHYSICIAN ASSISTANT): Currently asymptomatic. Keep appointment with general surgeon tomorrow. Red flags reviewed. Hospital discharge follow-up 03/06/2023 Assessment & Plan (03/06/2023 1:29 PM NURSE PRACTITIONER PHYSICIAN ASSISTANT): Nae Kwon NP have personally reviewed pertinent inpatient and/or [...] 02/04/2023 Assessment & Plan (05/08/2024 8:20 AM NURSE PRACTITIONER PHYSICIAN ASSISTANT): Continue f/u with Dr. Patel and will follow response. DUe for repeat imaging. Assessment & Plan (02/04/2023 2:23 PM NURSE PRACTITIONER PHYSICIAN ASSISTANT): Doxycycline twice daily for [address] Neck in 4 weeks Continue to monitor Thyroid nodule with yearly Ultrasounds, if growth over 4 cm will recommend Left completion thyroidectomy Continue good hydration and good oral hygiene Dental infection 02/04/2023 Assessment & Plan (02/04/2023 2:23 PM NURSE PRACTITIONER PHYSICIAN ASSISTANT): Doxycycline twice daily for [address] Neck in 4 weeks Continue to monitor Thyroid nodule with yearly Ultrasounds, if growth over 4 cm will recommend Left completion thyroidectomy Continue good hydration and good oral hygiene History of colonic polyps 05/17/2022 Overview (05/17/2022): Added automatically from request for surgery [id number] Assessment & Plan (05/08/2024 8:20 AM NURSE PRACTITIONER PHYSICIAN ASSISTANT): C-scope UTD. Assessment & Plan (03/06/2023 1:30 PM NURSE PRACTITIONER PHYSICIAN ASSISTANT): Colonoscopy up-to-date. Consider MiraLax for constipation but await follow-up with surgeon tomorrow. Encounter for screening colonoscopy 05/17/2022 Overview (05/17/2022): Added automatically from request for surgery [id number] Herpes zoster without complication 02/15/2022 Assessment & Plan (02/15/2022 8:10 AM NURSE PRACTITIONER PHYSICIAN ASSISTANT): Take antiviral three times daily for 7 [...] 02/15/2022 Assessment & Plan (05/08/2024 8:20 AM NURSE PRACTITIONER PHYSICIAN ASSISTANT): Contniues on zetia. Due for repeat labwork and will follow response. Assessment & Plan (02/15/2022 8:08 AM NURSE PRACTITIONER PHYSICIAN ASSISTANT): Patient taking ezetimibe as prescribed. Will repeat labs prior to next office visit in 2 months. Reviewed diet and exercise recommendations. Class 1 obesity due to exces s calories with serious comorbidity and body mass index (BMI) of 31.0 to 31.9 in adult 02/15/2022 Assessment & Plan (02/15/2022 8:10 AM NURSE PRACTITIONER PHYSICIAN ASSISTANT): Discussed healthy diet and importance of regular [...] Assessment & Plan (07/22/2021 2:59 PM CDT): Zpack, tessalon perles & medrol dose pack sent. Will continue otc. To start saline nasal rinses again. Will switch to plain mucinex. Resolved Problems Problem Noted Date Diagnosed Date Resolved Date Pain in wrist 04/20/2014 02/22/2023 Encounters Date Type Department Care Team Description 06/11/2024 8:10 AM CDT - 06/11/2024 11:59 PM CDT Hospital Encounter [facility] [address] [place] [address] Thyroid nodule Discharge Disposition: Discharge to home or self care 06/11/2024 8:10 AM CDT - 06/11/2024 11:59 PM CDT Hospital Encounter [facility] [address] [place] [address] Asymptomatic menopausal state Discharge Disposition: Discharge to home or self care 05/26/2024 Orders Only [facility] Primary Care at [address] [address] Anderson Lofton MD 05/08/2024 8:30 AM NURSE PRACTITIONER PHYSICIAN ASSISTANT Lab [facility] [address] [place] [address] Mixed hyperlipidemia 05/08/2024 8:00 AM NURSE PRACTITIONER PHYSICIAN ASSISTANT Office Visit [facility] [address] [address] Anderson Lofton MD Mixed hyperlipidemia (Primary Dx); Asymptomatic menopausal state; Thyroid nodule; History of colonic polyps; Annual physical exam; Adverse reaction to statin medication 05/08/2024 Orders Only [facility] [address] [address] Anderson Lofton MD Thyroid nodule (Primary Dx) from Last 3 Months Immunizations Immunization Administration Dates Next Due Influenza, Quad, Adjuvantate d, Intramuscular 01/20/2021 Influenza, Quadrivalent, Maty l Culture-based MDCK, Antibiotic Free, Intramuscular 12/15/2018,12/15/2018 Influenza, Quadrivalent, Hig h Dose, Preservative Free, Intrr 12/19/2022,12/14/2019,12/14/2019 Influenza, Trivalent, Preser vative Free, Intramuscular 02/08/2017,02/08/2017 Influenza, Unspecified 01/01/2024,2021,12/02/2017,12/02 Pneumococcal Conjugate PCV 13 03/06/2019 Pneumococcal Polysaccharide PPV23 04/28/2021 Tdap 02/08/2017,02/08/2017 Surgical History Surgery Date Site/Laterality Comments BREAST LUMPECTOMY 03/04/1980 - 03/03/1981 THYROID SURGERY COLONOSCOPY 07/02/2010 - 08/01/2010 APPENDECTOMY 2009 COLON SURGERY 2009 HYSTERECTOMY 1986 TUBAL LIGATION 1984 BLADDER SURGERY 1986 Medical History Medical History Date Comments Hyperlipidemia Vitamin D deficiency Pain in wrist 04/20/2014 GERD (gastroesophageal reflux disease) 2012 Arthritis 2013 Delayed emergence from general anesthesia Headache Family History Medical History Relation Name Comments Heart disease Brother Parker Najera Jr Family h istory of cardiac disorder - (Added by TW Conv) Cancer Daughter Eulalia [place] COPD Father Parker Najera Heart disease Father Parker Najera Family hist ory of cardiac disorder - (Added by TW Conv) Breast cancer Mother Candice Najera Cancer Mother Chaseley Najera Family his tory of malignant neoplasm - (Added by TW Conv) Relation Name Status Comments Brother Parker Najera Jr Daughter Eulalia [place] Father Parker Najera Mother Candice Najera Social History Tobacco Use Types Packs/Day Years [...] on file Legal Sex Female 11:19 AM NURSE PRACTITIONER PHYSICIAN ASSISTANT Gender Identity Not on file Sexual Orientation Not on file Obstetrics History Last Filed Vital Signs Vital Sign Reading Time Taken Comments Blood Pressure 124/78 05/08/2024 7:55 AM NURSE PRACTITIONER PHYSICIAN ASSISTANT Pulse 76 05/08/2024 7:55 AM NURSE PRACTITIONER PHYSICIAN ASSISTANT Temperature 36.8 C (98.3 F) 05/08/2024 7:55 AM NURSE PRACTITIONER PHYSICIAN ASSISTANT Respiratory Rate 18 05/08/2024 7:55 AM NURSE PRACTITIONER PHYSICIAN ASSISTANT Oxygen Saturation 99% 05/08/2024 7:55 AM NURSE PRACTITIONER PHYSICIAN ASSISTANT room air Inhaled Oxygen Concentration - - Weight 84.4 kg (186 lb) 05/08/2024 7:55 AM NURSE PRACTITIONER PHYSICIAN ASSISTANT Height 167.6 cm (5' 6 ) 05/08/2024 7:55 AM NURSE PRACTITIONER PHYSICIAN ASSISTANT Body Mass Index 30.02 05/08/2024 7:55 AM NURSE PRACTITIONER PHYSICIAN ASSISTANT Plan of Treatment Health Maintenance Due Date Last Done Comments Hepatitis B Screening 1970 Zoster Vaccine (1 of 2) 2002 Covid-19 Vaccine (2023-2 5 season) 2023 01/20/2021, 05/23/2020, 04/21/2020 Breast Cancer Screening-Mammogram 04/18/2024 04/18/2023, 10/05/2021, 03/18/2020, Additional history exists Depression Screening 05/08/2025 05/08/2024, 05/03/2023, 12/19/2022, Additional history exists Fall Risk Assessment 05/08/2025 05/08/2024, 05/03/2023, 04/12/2023, Additional history exists Well Visit 65+ 05/08/2025 05/08/2024, 03/2023, 04/30/2022, Additional history exists Osteoporosis Screening-Bone Density Scan 06/11/2026 06/11/2024, 10/05/2021, 05/01/2019 DTaP/Tdap/Td Vaccine (3 - Td or Tdap) 02/08/2027 02/08/2017, 02/08/2017 Colon Cancer Screening-Colonoscopy 06/15/2032 06/15/2022, 07/13/2010 Pneumococcal vaccine 65+ Completed 04/28/2021, 05/2019 Hepatitis C Screening Completed 07/10/2021 Colon Cancer Screening-CT Colonography Discontinued 06/15/2022, 07/13/2010 Colon Cancer Screening-DNA Stool Discontinued 06/16/19 23, 07/13/2010 Colon Cancer Screening-FIT Discontinued 06/15/2022, Colon Cancer Screening-Sigmoidoscopy Discontinued 06/15/2022, 07/13/2010 Influenza Vaccine Completed 01/01/2024, , 12/16/2021, Additional history exists Medical Devices Implanted Type Area Operations Research Manager Device Identifier Shelf Expiration Date Model / Serial / Lot [employer] Ventralight St Sepra 4.5in Uncoated Monofilament Lightweight [id number] - [id number] Implanted:Qty: 1 on 04/12/2023 by Ward Burnham MD at [facility] N/A: Abdomen [employer] 09/28/2024 [id number] / / [id number] Procedures Procedure Name Priority Date/Time Associated Diagnosis Comments DEXA AXIAL SKELETON BONE DENSITY 1 OR MORE SITES Schedule Routine, Read Routine (OP Routine) 06/11/2024 8:24 AM CDT Asymptomatic menopausal state EGFR Routine 05/08/2024 8:24 AM NURSE PRACTITIONER PHYSICIAN ASSISTANT Mixed hyperlipidemia DIFFERENTIAL AUTO Routine 05/08/2024 8:2 4 AM NURSE PRACTITIONER PHYSICIAN ASSISTANT Mixed hyperlipidemia CBC WITH AUTO DIFFERENTIAL Routine 05/08/2024 8:24 AM NURSE PRACTITIONER PHYSICIAN ASSISTANT Mixed hyperlipidemia COMPREHENSIVE METABOLIC PANEL Routine 05/08/2024 8:24 AM NURSE PRACTITIONER PHYSICIAN ASSISTANT Mixed hyperlipidemia LIPID PANEL Routine 05/08/2024 8:24 AM NURSE PRACTITIONER PHYSICIAN ASSISTANT Mixed hyperlipidemia SCREENING MAMMOGRAM BILATERAL W DELIA Schedule Routine, Read Routine (OP Routine) 04/18/2023 11:54 AM NURSE PRACTITIONER PHYSICIAN ASSISTANT Encounter for screening mammogram for malignant neoplasm [...] history of: Postmenopausal status. Patient takes vitamin-D. Operations Research Manager/Model: [employer] SL (S/N [id number]) Facility LSC value of 0.022 for the [...] Betina Quiñonez M.D. TW: TW Report ID: [id number] Reading Location: [id number] Procedure Note Betina Quiñonez MD - 06/11/2024 EXAM DESCRIPTION: DEXA AXIAL SKELETON BONE DENSITY 1 OR MORE SITES REASON FOR STUDY: 73 y/o year old F with given history of:Postmenopausal status. Patient takes vitamin-D. Operations Research Manager/Model: [employer] SL (S/N [id number]) Facility LSC value of 0.022 for the [...] Betina Quiñonez M.D. TW: BIBI Report ID: [id number] Reading Location: [place] [address] Anderson Lofton MD IMG DXA PROCEDURES Final Result * eGFR (05/08/2024 8:24 AM NURSE PRACTITIONER PHYSICIAN ASSISTANT) eGFR 72 >=60 mL/min/1. 73 m2 Comment: [...] was last reviewed 2021. Testing performed by: [facility], [address] [place] [address], [place]., [address] Blood 05/08/2024 8:24 AM NURSE PRACTITIONER PHYSICIAN ASSISTANT 05/08/2024 1:17 PM NURSE PRACTITIONER PHYSICIAN ASSISTANT Anderson Lofton MD LAB BLOOD ORDERABLES Raquel l Result [facility] ([place]) 1 [facility] Department [place] [address] * Differential, auto (05/08/2024 8:24 AM NURSE PRACTITIONER PHYSICIAN ASSISTANT) Neutrophil abs 3.2 1.5 - 6.5 K/cumm Comment:Testing performed by : [facility], [address] [place] [address]., [address] Imm gran abs 0.0 0.0 - 0.1 K/cumm [facility] ([place]) Comment:Testing performed by : [facility], [address] [place] [address]., [address] Lymphocyte abs 1.8 0.8 - 3.3 K/cumm [facility] ([place]) Comment:Testing performed by : [facility], [address] [place] [address]., [address] Monocyte abs 0.4 0.2 - 0.8 K/cumm [facility] ([place]) Comment:Testing performed by : [facility], [address] [place] [address]., [address] Eosinophil abs 0.1 0.0 - 0.5 K/cumm [facility] ([place]) Comment:Testing performed by : [facility], [address] [place] [address]., [address] Basophil abs 0.1 0.0 - 0.1 K/cumm [facility] ([place]) Comment:Testing performed by : [address], [address] Neutrophil pct 56.7 % [facility] ([place]) Comment: Interpretive Data Percent cell count reference ranges are not reported, since discordance with absolute values may lead to misinterpretation of CBC data. Current Interpretive Data was last revised on 2017. Testing performed by: [address] [address] Imm gran pct 0.4 % [facility] ([place]) Comment: Interpretive Data Percent cell count reference ranges are not reported, since discordance with absolute values may lead to misinterpretation of CBC data. Current Interpretive Data was last revised on 2017. Testing performed by: [address], [address] Lymphocyte pct 32.9 % [facility] Sheri [facility] ([place]) Comment: Interpretive Data Percent cell count reference ranges are not reported, since discordance with absolute values may lead to misinterpretation of CBC data. Current Interpretive Data was last revised on 2017. Testing performed by: [facility], [address] [place] [address]., [address] Monocyte pct 7.7 % [facility] ([place]) Comment: Interpretive Data Percent cell count reference ranges are not reported, since discordance with absolute values may lead to misinterpretation of CBC data. Current Interpretive Data was last revised on 2017. Testing performed by: [facility], [address] [place] [address]., [address] Eosinophil pct 1.4 % [facility]ERNE Sheri [facility] ([place]) Comment: Interpretive Data Percent cell count reference ranges are not reported, since discordance with absolute values may lead to misinterpretation of CBC data. Current Interpretive Data was last revised on 2017. Testing performed by: [address] [address] Basophil pct 0.9 % [facility] ([place]) Comment: Interpretive Data Percent cell count reference ranges are not reported, since discordance with absolute values may lead to misinterpretation of CBC data. Current Interpretive Data was last revised on 2017. Testing performed by: [address] [address] Blood 05/08/2024 8:24 AM NURSE PRACTITIONER PHYSICIAN ASSISTANT 05/08/2024 1:05 PM NURSE PRACTITIONER PHYSICIAN ASSISTANT us Anderson Lofton MD LAB BLOOD ORDERABLES Raquel l Result [facility] ([place]) 1 [facility] Department [place] [address] * (ABNORMAL) CBC with auto differential (05/08/2024 8:24 AM NURSE PRACTITIONER PHYSICIAN ASSISTANT) WBC 5.6 3.8 - 9.9 K/cumm Comment:Testing performed by : [address] [address] Hgb 13.3 11.9 - 15.5 g/dL [facility] ([place]) Comment:Testing performed by : [facility], [address] [place] [address], [address] Hct 43.3 35.6 - 45.5 % [facility] ([place]) Comment:Testing performed by : [facility], [address] [place] [address], [address] Plt 385 150 - 400 K/cumm [facility] ([place]) Comment:Testing performed by : [address], [address] MPV 10.2 9.1 - 12.3 fL [facility] ([place]) Comment:Testing performed by : [address], [address] RBC 4.59 3.90 - 5.20 M/cumm [facility] ([place]) Comment:Testing performed by : [address], [address] MCV 94.3 81.3 - 96.4 fL [facility] ([place]) Comment:Testing performed by : [address], [address] MCH 29.0 27.1 - 33.3 pg [facility] ([place]) Comment:Testing performed by : [address], [address] MCHC 30.7(L) 32.3 - 35.7 g/dL [facility] ([place]) Comment:Testing performed by : [address], [address] RDW CV 14.1 11.1 - 14.9 % [facility] ([place]) Comment:Testing performed by : [address], [address] RDW SD 49.5(H) 35.7 - 48.1 fL [facility] ([place]) Comment:Testing performed by : [address], [address] NRBC abs 0.00 0.00 - 0.01 K/cumm [facility] ([place]) Comment:Testing performed by : [address], [address] Blood 05/08/2024 8:24 AM NURSE PRACTITIONER PHYSICIAN ASSISTANT 05/08/2024 1:05 PM NURSE PRACTITIONER PHYSICIAN ASSISTANT us Anderson Lofton MD LAB BLOOD ORDERABLES Raquel woodruff Result [facility] ([place]) 1 [facility] Department [place] [address] * (ABNORMAL) Lipid panel (05/08/2024 8:24 AM NURSE PRACTITIONER PHYSICIAN ASSISTANT) Cholesterol 227(H) 30 - 199 mg/dL Comment: [...] last revised on 2017. Testing performed by: [facility], [address] [place] [address]., [address] Triglycerides 103 <=149 mg/dL [facility] ([place]) [...] last revised on 2017. Testing performed by: [facility], [address] [place] [address]., [address] HDL 62 >=40 mg/dL [facility] ([place]) [...] last revised on 2017. Testing performed by: [address] [address] LDL, calculated 147(H) <=129 mg/dL [facility] [...] last revised on 2023. Testing performed by: [facility], [address] [place] [address]., [address] Non-HDL Cholesterol 165 mg/dL [facility] ([place]) [...] last revised on 2017. Testing performed by: [facility], [address] [place] [address]., [address] Chol/HDL ratio 4 [facility] ([place]) Comment:Testing performed by : [facility], [address] [place] [address]., [address] Blood 05/08/2024 8:24 AM NURSE PRACTITIONER PHYSICIAN ASSISTANT 05/08/2024 1:05 PM NURSE PRACTITIONER PHYSICIAN ASSISTANT us Anderson Lofton MD LAB BLOOD ORDERABLES Raquel woodruff Result [facility] ([place]) 1 [facility] Department [place] [address] * Comprehensive metabolic panel (05/08/2024 8:24 AM NURSE PRACTITIONER PHYSICIAN ASSISTANT) Sodium 141 135 - 145 mmol/L Comment:Testing performed by : [address], [address] Potassium, pl 4.2 3.3 - 4.9 mmol/L [facility] ([place]) Comment:Testing performed by : [facility], [address] [place] [address], [address] Chloride 103 97 - 110 mmol/L [facility] ([place]) Comment:Testing performed by : [facility], [address] [place] [address], [address] CO2 26 22 - 32 mmol/L [facility] ([place]) Comment:Testing performed by : [address] [address] Anion gap 12 2 - 15 mmol/L [facility] ([place]) Comment:Testing performed by : [address], [address] BUN 17 6 - 25 mg/dL [facility] ([place]) Comment:Testing performed by : [address], [address] Creatinine 0.86 0.60 - 1.10 mg/dL [facility] ([place]) Comment:Testing performed by : [address], [address] Glucose 104 70 - 199 mg/dL [facility] ([place]) Comment: Interpretive Data Fasting glucose [...] was last revised 2022. Testing performed by: [facility], [address] [place] [address]., [address] Calcium 9.3 8.5 - 10.3 mg/dL [facility] ([place]) Comment:Testing performed by : [address] [address] Bilirubin, total 0.3 0.1 - 1.2 mg/dL [facility] ([place]) Comment:Testing performed by : [address], [address] Protein, pl 7.3 6.5 - 8.5 g/dL [facility] ([place]) Comment:Testing performed by : [address] [address] Albumin 4.4 3.5 - 5.0 g/dL [facility] ([place]) Comment:Testing performed by : [address] [address] Alk phos 90 40 - 130 Units/L [facility] ([place]) Comment:Testing performed by : [address], [address] ALT 32 7 - 45 Units/L [facility] ([place]) Comment:Testing performed by : [address], [address] AST 33 10 - 45 Units/L [facility] ([place]) Comment:Testing performed by : [address], [address] Blood 05/08/2024 8:24 AM NURSE PRACTITIONER PHYSICIAN ASSISTANT 05/08/2024 1:05 PM NURSE PRACTITIONER PHYSICIAN ASSISTANT us Anderson Lofton MD LAB BLOOD ORDERABLES Raquel l Result [facility] [place] 1 [facility] Department [place] [address] * SCREENING MAMMOGRAM BILATERAL W DELIA (04/18/2023 11:54 AM NURSE PRACTITIONER PHYSICIAN ASSISTANT) Anatomical Region Laterality Modality Breast Bilateral Mammography 04/18/2023 11:5 4 AM NURSE PRACTITIONER PHYSICIAN ASSISTANT us Anderson Lofton MD IMG MAMMO PROCEDURES Raquel l Result * COLONOSCOPY (06/15/2022 9:26 AM CDT) Anatomical Region Laterality Modality Other Narrative Procedure Note Devyn Barrios MD - 06/15/2022 9:26 AM CDT [facility] Patient Name: Katherine Chapman Procedure Date: 06/15/2022 9:26 AM Date of : 1950 Admit Type: Outpatient Age: 71 Gender: Female Attending MD: Devyn Barrios M.D. Room: [facility] ENDOSCOPY ROOM 2 Note Status: [...] scope was passed under direct vision. TheColonoscope [id number] was introduced through the anus and advanced [...] 9:26 AM Procedure Code(s): --- Professional --- 64292, Colonoscopy, flexible; diagnostic, including collection of specimen(s) by brushing or washing, when performed (separateprocedure) --- Technical --- 95801, Colonoscopy, flexible; diagnostic, including collection of specimen(s) by brushing or washing, when performed (separateprocedure) Diagnosis Code(s): --- Professional --- K57.30, Diverticulosis of large intestine without perforation orabscess without bleeding R19.5, Other fecal abnormalities K64.9, Unspecified hemorrhoids --- Technical --- K57.30, Diverticulosis of large intestine without perforation orabscess without bleeding R19.5, Other fecal abnormalities K64.9, Unspecified hemorrhoids CPT copyright 2020 [employer] [place] [employer]. All rights reserved. The codes documented in this report are preliminary and upon auditing coder reviewmay be revised to meet current compliance requirements. Recognized by the [place] [employer] for promoting quality [...] a test for HCV RNA (test code 80035) is suggested. For additional information please refer to http://education.RuffWire.Pulmologix/faq/QEP30k9 (This link is being provided for informational/ educational purposes only.) Blood specimen (specimen) 07/10/2021 7:15 AM CDT 07/10/2021 7:16 AM CDT Narrative [facility] - 07/11/2021 10:28 AM CDT FASTING:YES FASTING: YES Nae Hanson NP LAB MICROBIOLOGY - GENERAL ORDERABLES Final Result [facility] [address] [place] [address] from Last 3 Months or Most Recently Relevant to Health Maintenance Insurance [facility]IC[facility] Address: [place] [id number] [place] [id number] [facility] MEDICARE [employer] [facility] Address: [address] [place] [address] Advance Directives For more information, please contact: [phone] * Full Code (Latest Code Status on File) Date Activated Date Inactivated Comments 06/15/2022 9:21 AM 06/15/2022 3:22 PM * Full Code Date Activated Date Inactivated Comments 06/15/2022 9:21 AM 06/15/2022 9:21 AM Care Teams Feed Management Advisor Relationship Specialty Start Date End Date Anderson Lofton MD [address] [place] [address] PCP - General Family Medicine 03/06/19
--- OUTSIDE RECORDS SUMMARY | 2024-06-18 14:50 | XMS_ITS | Encounter Summary ---
Author Organization [facility] Healthcare Address [address] [place] [address] Care Team Providers Care Psychologist Counseling Name Role Phone Anderson Lofton MD Primary Care Provider [phone] Encounter Details Date Type Department Care Team (Late st Contact Info) Description 12/27/2022 Telephone [facility] [address] [place] [address] Yomaira Tomlinson RN Social History Tobacco Use Types Packs/Day Years Used Date Smoking Tobacco: Former Smokeless Tobacco: Never Alcohol Use Standard Drinks/Week Comments Never 0 (1 standard drink = 0.6 oz pur e alcohol) AUDIT-C Answer Date Recorded Frequency of Alcohol Consumption Never 03/06/2019 Average Number of Drinks Not on file 020 Frequency of Binge Drinking Not on file 05/2019 PHQ-2 Answer Date Recorded PHQ-2 Total Score (If total score is 3 or more points, staff should administer the PHQ-9) 0 12/19/2022 Comments Unknown Sex and Gender Information Value Date Recorded Sex Assigned at Not on file 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
--- OUTSIDE RECORDS SUMMARY | 2024-06-18 14:50 | XMS_ITS | Clinical Summary ---
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 Gender Identity Not on file Sexual Orientation Not on file Plan of Treatment Health Maintenance Due Date Last Done Comments DEXA Bone Density 1950 Hepatitis C Virus (HCV) Screening 1950 Colonoscopy 1997 Colorectal Cancer Screening 1997 Cologuard 2002 Immunochemical Fecal Occult Blood 2002 Mammogram 2002 Zoster Immunization (1 of 2) 2002 Pneumococcal Immunization (50+ years) (2 of 2 - PPSV23) 03/06/2020 03/06/2019 Influenza Immunization (#1) 11/03/202312/02, 12/15/2018, 12/02/2017, Additional history exists SARS-COV-2 Immunization ( season) 2023 01/20/2021, 05/23/2020, 04/21/2020 Respiratory Syncytial Virus (RSV) Immunization (Adult) (1 - 1-dose 75+ series) 11/21/2027 DTaP/Tdap/Td Immunization Discontinued 02/08/2017 TdaP Immunization Completed 02/08/2017 Hepatitis B Immunization Aged Out No longer eligible based on patient's age to complete this topic Meningococcal Immunization (ACWY) Aged Out No longer eligible based on patient's age to complete this topic Rotavirus Immunization Aged Out No lo nger eligible based on patient's age to complete this topic
== END 2024-06-18 14:45 | disposition home or self-care (01) ==
PROVIDERS: PCP Family Medicine; Visit Provider Family Medicine
DX: Z12.31 Encounter for screening mammogram for malignant neoplasm of breast (principal)
CPT/HCPCS: 77063; 77067